=== PATIENT | male | born 1985 | race African-American/Black ===

== ENCOUNTER 2021-02-04 14:59 | Emergency (ER) | payer MEDICAID, SELFPAY ==
--- NOTE | ~2021-02-04 | XR_ITS ---
EXAMINATION: XR KNEE, LEFT CLINICAL INFORMATION: Left knee abrasion, suspected bone exposure. COMPARISON: None TECHNIQUE: AP and lateral views of the left knee. FINDINGS: No acute fracture or malalignment. Bone mineralization is normal. No subcutaneous gas. No focal soft tissue swelling. Trace joint effusion. Joint spaces are well-preserved. No radiodense foreign bodies. XR/XR knee LT 2V IMPRESSION: No acute osseous abnormalities. Trace joint effusion.
--- NOTE | ~2021-02-04 | XR_ITS ---
EXAMINATION: XR HAND, LEFT CLINICAL INFORMATION: Left hand abrasion. COMPARISON: None TECHNIQUE: PA, lateral, and oblique views of the left hand. FINDINGS: No acute fracture or malalignment. Bone mineralization is normal. Joint spaces are well-preserved. No appreciable subcutaneous gas. No radiodense foreign bodies are identified. Soft tissue injuries are not well seen, though small lesions are suspected at the palmar margins of the distal phalanges of the index, long, and ring fingers. XR/XR hand LT 2V IMPRESSION: No acute osseous findings or radiodense foreign bodies.
[2021-02-04 15:11] VITALS: BP 103/66; PULSE 77; RESP 20; TEMP 36.6; O2SAT 99; BMI 20.2
[2021-02-04] MEDS: Acetaminophen 325 MG TABLET 650 MG PO (15:16)
--- NOTE | 2021-02-04 16:09 | ED.WOUNDLAC ---
HPI - Wound/Laceration General Chief Complaint: Wound/Laceration Stated Complaint: lac Time Seen by Provider: 02/04/21 16:09 Source: patient Mode of arrival: ambulatory Limitations: no limitations History of Present Illness HPI narrative: 35-year-old male with no significant past medical history presents with multiple abrasions after falling off of his skateboard. He has significant abrasions to his left hand, left forearm, left knee, back and buttocks. It is unknown when his last Tdap vaccine was updated. Does not report hitting his head or losing consciousness, he is able to move all extremities and has full range of motion. Does not report any prodromal events, stated that he hit a rock and was propelled off of his board. He denies chest pain or pressure, palpitations, shortness of breath, abdominal pain, abdominal distention, symptoms indicating cauda equina, changes in vision, headache, or any other concerning symptoms. Onset (ago): minute(s) Location: back (Abrasion) Extremity Location: left: arm (Abrasion), forearm (Abrasion), wrist (Abrasion), hand (Abrasion) and knee (Abrasion) Place: outdoors Patient tetanus UTD: No Context: accidental Associated symptoms: pain Related Data Previous Rx's Medication Instructions Recorded amoxicillin 875 mg-potassium 1 tab PO Q12H 10 Days #20 tab 02/04/21 clavulanate 125 mg tablet (Augmentin) hydrocodone 5 mg-acetaminophen 325 1 tab PO Q8H PRN #10 tab 02/04/21 mg tablet Allergies Allergy/AdvReac Type Severity Reaction Status Date / Time No Known Allergies Allergy Mild NONE Verified 02/04/21 15:11 Review of Systems Review of Systems: Constitutional: No Fever, No Chills ENT/Mouth: No Ear Pain, No Hoarseness, No sore throat Eyes: No Eye Pain, No Swelling, No Redness, No Foreign Body Cardiovascular: No Chest Pain, No SOB Respiratory: No Cough, No Dyspnea Gastrointestinal: No Nausea, No Vomiting, No Diarrhea, No abdominal Pain Genitourinary: No Dysuria, No Hematuria Musculoskeletal: positive left hand, left forearm, left knee, back and buttocks pain, No Myalgias, No Joint Swelling Skin: No Skin lacerations, No rash Neuro: No Weakness, No Numbness, No Paresthesias, No Loss of Consciousness, No Dizziness, No Headache Psych: No Anxiety/Panic, No Depression Heme/Lymph: no easy bruising, no Lymphadenopathy Endocrine: No Polyuria, No Polydipsia Yes all other systems are reviewed and are negative [facility] Past Medical History Attestation statement: The following information was validated with the patient. Source: old records reviewed Medical History No pertinent past medical history Social History Social History Advance Directives: No Advance Directives Information Provided: No Physical Exam Vital Signs: Vital Signs: Last Vital Signs Temp 97.9 F 02/04/21 15:11 Pulse 77 02/04/21 15:11 Resp 20 02/04/21 15:11 BP 103/66 02/04/21 15:11 Pulse Ox 99 02/04/21 15:11 Body Mass Index 20.2 Appearance: Alert. Oriented X3. Moderate distress. Head: Normal external exam. Normocephalic. Atraumatic. No Pickering signs noted. No raccoon eyes noted Eyes: PERRLA. EOMI. Conjunctiva and sclera normal. Eyelids normal. ENT: TM's Normal. Pharynx normal. Uvula midline. Moist mucous membranes. Neck: Normal inspection. Neck supple. No adenopathy. No vertebral tenderness, no vertebral step-offs. CVS: Normal heart rate and rhythm. Heart sound normal. No murmurs noted. Pulses equal to all extremities. Respiratory: No respiratory distress. Painless inspiration. Lung sounds clear to auscultation all lobes. Chest nontender. No accessory muscle usage noted or decreased air movement noted. Abdomen: Soft and nontender. Bowel sounds normal in all 4 quadrants. No distention noted. No organomegaly noted. No visible injury noted. Back: No CVA tenderness. Full range of motion noted. Skin: Multiple abrasions to left hand, left forearm, left knee. Skin warm and dry. Normal skin color. Normal skin turgor. No rashes/lesions/lacerations noted. Extremities: No lower extremity edema. Extremities exhibit normal range of motion. Extremities nontender. Neuro: cranial nerves 2-12 intact, no focal neural deficits, strength 5/5 to all extremities, No motor deficit. No sensory deficit. Reflexes normal. Course Course Course Narrative: 35-year-old male presents with multiple abrasions after a skateboarding accident. Patient is neurovascularly intact, no focal neural deficits. Unknown last Tdap vaccine, will update. Will order x-rays of extremities. Dr Barber also in to assess wounds. Plan is to debride, pictures and video taken of wounds and send to Orthopedics. Orthopedics will follow-up with patient in the office on Saturday. Will discharge home with antibiotics. X-rays are negative for fractures, free air or dislocations. Will discharge home with antibiotics. Patient does understand that if he develops any fevers, chills, purulent drainage that he must seek medical attention immediately. Patient verbalized understanding of and agrees to plan of care discharge home. Consultations Consultation #1: Elizabeth Time: 18:00 MDM - Wound/Laceration MDM Narrative Medical decision making narrative: Fracture, dislocation Differential Diagnosis Differential diagnosis: Likely laceration and abrasion Medical Records Attestation: I reviewed the patient's medical records. Lab Data Attestation: I reviewed the patient's lab results. Result diagrams: 02/04/21 16:24 02/04/21 16:24 Labs: Lab Results 02/04/21 02/04/21 Range/Units 16:24 16:24 WBC 14.9 H (4.8-10.8) X10*3/uL RBC 4.72 (4.60-5.80) X10*6/uL Hgb 14.5 (14.0-18.0) g/dl Hct 43.7 (42-52) % MCV 92.6 (80-98) fL MCH 30.7 (27.0-33.0) pg MCHC 33.2 (31.0-36.0) g/dl RDW 12.9 (11.0-16.0) % Plt Count 321 (160-400) X10*3/uL MPV 9.1 L (9.4-12.4) fL Immature Gran % (Auto) 0.3 (0.0-0.4) % Neut % (Auto) 82.5 H (45-73) % Lymph % (Auto) 8.1 L (20-40) % [place] % (Auto) 8.5 (2-11) % Eos % (Auto) 0.3 (0-4) % Baso % (Auto) 0.3 (0-2) % Lymph # (Auto) 1.2 (1.2-4.9) X10*3/uL [place] # (Auto) 1.3 H (0.1-1.2) X10*3/uL Eos # (Auto) 0.1 (0.0-0.4) X10*3/uL Baso # (Auto) 0.0 (0.0-0.2) X10*3/uL Abs Immat Gran (auto) 0.05 H (0.00-0.03) X10*3/uL Absolute Neuts (auto) 12.3 H (2.0-8.3) X10*3/uL Absolute Nucleated RBC 0.000 (0.0-0.012) X10*3/uL Nucleated RBC % (auto) 0.0 (0.0-0.2) /100WBC Sodium 141 (135-145) mmol/L Potassium 4.4 (3.3-5.1) mmol/L Chloride 106 (96-108) mmol/L Carbon Dioxide 25 (22-29) mmol/L Anion Gap 14 (12-20) BUN 16 (9-16) mg/dL Creatinine 1.02 (0.5-1.4) mg/dL Estim Creat Clear Calc 95.8 Estimated GFR > 60 Random Glucose 94 (60-115) mg/dL Calcium 10.2 (8.4-10.2) mg/dL Imaging Data Hand and knee x-rays: Attestation: I personally reviewed and interpreted this imaging study as follows: Radiologist's impression: EXAMINATION: XR KNEE, LEFT CLINICAL INFORMATION: Left knee abrasion, suspected bone exposure.? COMPARISON: None? TECHNIQUE: AP and lateral views of the left knee. FINDINGS: No acute fracture or malalignment. Bone mineralization is normal. No subcutaneous gas. No focal soft tissue swelling. Trace joint effusion. Joint spaces are well-preserved. No radiodense foreign bodies. XR/XR knee LT 2V IMPRESSION: No acute osseous abnormalities. Trace joint effusion. EXAMINATION: XR HAND, LEFT CLINICAL INFORMATION: Left hand abrasion.? COMPARISON: None? TECHNIQUE: PA, lateral, and oblique views of the left hand. FINDINGS: No acute fracture or malalignment. Bone mineralization is normal. Joint spaces are well-preserved. No appreciable subcutaneous gas. No radiodense foreign bodies are identified. Soft tissue injuries are not well seen, though small lesions are suspected at the palmar margins of the distal phalanges of the index, long, and ring fingers. XR/XR hand LT 2V IMPRESSION: No acute osseous findings or radiodense foreign bodies. Discharge Plan Discharge Clinical Impression: Abrasion Patient Disposition: Home, Self-Care Instructions: Abrasion (ED) Additional Instructions: You were evaluated for multiple abrasions. We did irrigate and debride your wounds. Please take Augmentin twice a day for the next 10 days. Please call orthopedics on Saturday for an appointment. We prescribed Vicodin for pain management. Please take this medication as directed. This medication is narcotic and has high risk for addiction and abuse. Do not drive or operate machinery while taking this medication. We updated your Tdap vaccine today. Prescriptions: New hydrocodone-acetaminophen 5-325 mg tablet 1 tab PO Q8H PRN (Reason: pain) Qty: 10 RF: 0 amoxicillin-pot clavulanate [Augmentin] 875-125 mg tablet 1 tab PO Q12H 10 Days Qty: 20 RF: 0 Referrals: Sobeida Johnson PA-C [[facility]] - 2 days (Deep abrasion left lateral knee) Interventions: ED Discharge Assessment Last Done: 02/04/21 18:35 Discharge Date/Time: 02/04/21 18:17
[2021-02-04 16:28] LABS: MANUAL DIFF FLAG NO
[2021-02-04 16:31] LABS: Basophils Percent Auto 0.3 % (0-2); Eosinophils Absolute Auto 0.1 X10*3/uL (0.0-0.4); Eosinophils Percent Auto 0.3 % (0-4); Hematocrit 43.7 % (42-52); Hemoglobin 14.5 g/dl (14.0-18.0); Imm Gran Abs Auto 0.05 X10*3/uL (0.00-0.03); Imm Gran Pct Auto 0.3 % (0.0-0.4); Lymphocytes Absolute Auto 1.2 X10*3/uL (1.2-4.9); Lymphocytes Percent Auto 8.1 % (20-40); Mean Corpuscular HGB Conc 33.2 g/dl (31.0-36.0); Mean Corpuscular Hemoglobin 30.7 pg (27.0-33.0); Mean Corpuscular Volume 92.6 fL (80-98); Mean Platelet Volume 9.1 fL (9.4-12.4); Monocytes Absolute Auto 1.3 X10*3/uL (0.1-1.2); Monocytes Percent Auto 8.5 % (2-11); Neutrophils Absolute Auto 12.3 X10*3/uL (2.0-8.3); Neutrophils Percent Auto 82.5 % (45-73); Platelet Count 321 X10*3/uL (160-400); Red Blood Count 4.72 X10*6/uL (4.60-5.80); Red Cell Distribution Width 12.9 % (11.0-16.0); White Blood Count 14.9 X10*3/uL (4.8-10.8)
[2021-02-04] MEDS: Morphine Sulfate 4 MG/ML CARTRIDGE IVPUSH (16:40)
[2021-02-04 16:50] LABS: Anion Gap 14 (12-20); Blood Urea Nitrogen 16 mg/dL (9-16); Calcium 10.2 mg/dL (8.4-10.2); Carbon Dioxide 25 mmol/L (22-29); Chloride 106 mmol/L (96-108); Creatinine Clr Calc Pharmacy 95.8; Estimated Glomerular Filt Rate > 60; Glucose Random 94 mg/dL (60-115); Potassium 4.4 mmol/L (3.3-5.1); Sodium 141 mmol/L (135-145)
[2021-02-04] MEDS: Diphth,Pertus(ACell),Tet Adult 0.5 ML SYRINGE IM (16:50)
[2021-02-04] MEDS: Lidocaine HCl 2 % MPF 5 ML VIAL 10 ML SUBCUT (17:05)
--- NOTE | 2021-02-04 18:39 | PC.NURSE ---
PT LAC TO PUNCTURE, LAC TO LEFT WITH ROAD RASH CLEANED AND IRRIGATED BY SLP TEACHER VENICE WET TO DRY DSD APPLIED. ROAD RASH TO LEFT HAND CLEANED WELL ROAD RASH REMOVED AND DSD APPLIED.
== END 2021-02-04 18:17 | disposition home or self-care (01) ==
PROVIDERS: Nurse Practitioner Family; Emergency Provider Emergency Medicine Emergency Medical Services
DX: S60.512A Abrasion of left hand, initial encounter (principal); S50.812A Abrasion of left forearm, initial encounter; S80.212A Abrasion, left knee, initial encounter; S30.810A Abrasion of lower back and pelvis, initial encounter; S60.812A Abrasion of left wrist, initial encounter; V00.131A Fall from skateboard, initial encounter; Y93.51 Activity, roller skating (inline) and skateboarding; Y92.480 Sidewalk as the place of occurrence of the external cause; Y99.9 Unspecified external cause status
CPT/HCPCS: 36415; 73120; 73560; 80048; 85025; 90471; 90715; 96365; 96372; 96375; 99284; J0690; J2270; J2405